=== PATIENT | female | born 1950 | race Caucasian/White ===

== ENCOUNTER → 2018-12-21 | Outpatient (CLI) | payer SELFPAY ==
[2018-11-28 13:46] VITALS: BMI 38.5
--- NOTE | 2018-12-21 09:53 | ECHOD_ITS ---
Reason For Study: Afib/Flutter Procedure This was a 2D Doppler, Color Flow transthoracic echocardiogram. The exam was of adequate technical quality. Exam performed in department. Left Ventricle Normal LV size. Left ventricular systolic function is normal. The estimated ejection fraction is 60 %. There is evidence of diastolic dysfunction. No regional wall motion abnormalities noted. Right Ventricle Normal RV size. ICD or pacer leads identified within the right ventricle. Normal systolic function. Atria The left atrium is mildly enlarged. The right atrium is mildly enlarged. ICD or pacer leads identified within the right atrium. No doppler evidence for ASD. Mitral Valve There is no mitral annular calcification. Normal mitral valve. Mild-Moderate (1-2+) eccentric mitral valve insufficiency. Tricuspid Valve Normal tricuspid valve. Mild to moderate (1-2+) eccentric tricuspid valve insufficiency. Right ventricular systolic pressure estimated to be 45 mmHg. Aortic Valve Trisinus/trileaflet aortic valve. Normal aortic valve. Pulmonic Valve The pulmonic valve is not well visualized. Trivial pulmonic valve insufficiency. Great Vessels The aortic root is not well visualized. Pericardium/Pleural No pericardial effusion. MMode/2D Measurements & Calculations LVIDd: 3.8 cm IVSd: 1.0 cm LA dimension: 3.3 cm LVIDs: 2.5 cm LVPWd: 1.3 cm FS: 34.6 % LAV(MOD-bp): 82.2 ml LA A4 area: 24.8 cm2 RA A4 area: 20.2 cm2 LAV(MOD-bp) Indexed: 34.7 ml/m2 LAV(MOD-sp2): 81.8 ml LAV(MOD-sp4): 80.8 ml Time Measurements MV dec time: 0.22 sec Doppler Measurements & Calculations MV E max rajeev: 169.9 cm/sec Lat Peak E' Rajeev: 12.9 cm/sec Med Peak E' Rajeev: 9.3 cm/sec E/E' lat: 13.2 E/E' med: 18.3 MV V2 max: 180.1 cm/sec MV P1/2t max rajeev: 179.1 cm/sec Ao V2 max: 145.6 cm/sec MV max P.0 mmHg MV P1/2t: 96.6 msec Ao max P.5 mmHg MV V2 mean: 97.0 cm/sec MV dec slope: 542.9 cm/sec2 MV mean P.6 mmHg MVA(P1/2t): 2.3 cm2 MV V2 VTI: 42.8 cm LV V1 max: 104.3 cm/sec PA V2 max: 94.4 cm/sec TR max rajeev: 320.5 cm/sec LV V1 max P.3 mmHg TR max P.5 mmHg Interpretation Summary Left ventricular systolic function is normal. The estimated ejection fraction is 60 %. The left atrium is mildly enlarged. The right atrium is mildly enlarged. Mild-Moderate (1-2+) eccentric mitral valve insufficiency. Mild to moderate (1-2+) eccentric tricuspid valve insufficiency. Trivial pulmonic valve insufficiency. Right ventricular systolic pressure estimated to be 45 mmHg. There is evidence of diastolic dysfunction. Ordering Physician: Yobani Butler Referring Physician: Yobani Butler Performed By: Leonel Garza RCS
== END | disposition home or self-care (01) ==
PROVIDERS: Family Provider Family Medicine; PCP Family Medicine; Referring Provider Internal Medicine Cardiovascular Disease; Visit Provider Internal Medicine Cardiovascular Disease
DX: Z01.810 Encounter for preprocedural cardiovascular examination (principal); I48.0 Paroxysmal atrial fibrillation; I48.92 Unspecified atrial flutter; Z95.0 Presence of cardiac pacemaker; E78.5 Hyperlipidemia, unspecified; I10 Essential (primary) hypertension
CPT/HCPCS: 93306

== ENCOUNTER 2020-03-27 10:12 | Day surgery (SDC) | payer SELFPAY, OTHER ==
[2019-11-27 15:55] VITALS: BMI 39.9
--- NOTE | 2020-03-23 02:27 | HP_ITS ---
HPI HPI History of Present Illness Surgical H&P: Yes Details: WYATT SAGASTUME, is a 69 year old white female who presents to the office today for an outpatient cardiovascular follow-up of her history of underlying atrial fibrillation status post EPS/RFA and subsequent AV node ablation with permanent pacemaker placement. This is superimposed on hyperlipidemia, hypertension, liver adenocarcinoma, and MESSI with CPAP therapy. Patient's permanent pacemaker evaluation prior to office visit showed ventricular paced at 99.8%, no VHR episodes, and 2 months of battery longevity. Pt denies chest, arm, jaw, or neck discomfort. His exercise tolerance is stable. Pt denies symptoms of CHF, palpitations, lightheadedness, dizziness, near syncopal or syncopal episodes. Pt denies claudication issues. Pt. denies orthopnea, PND, fever, chills, blood in urine, blood in stool, myalgia, or unexplainable fatigue. She states bilateral lower extremity edema that progresses throughout the day and improves over night. She denies any urinary symptoms such as dysuria or frequency. Intake Vital Signs 03/23/20 Height 5 ft 10 in 03/23/20 Weight: 271 lb 03/23/20 BMI 38.9 03/23/20 BP 143/80 H 03/23/20 Blood Pressure Location Lt brachial 03/23/20 Position Sitting 03/23/20 Respiration 18 03/23/20 Pulse 86 03/23/20 Pulse Source Monitor 03/23/20 Pulse Oximetry (%) 97 Intake Visit Reasons: GEN CHG, UPDATE H&P Esl Instructor Required: No Accompanied by: None Is patient in pain?: No Allergies Pproifa-Xqk-Bbx Reductase Inhibitor Adverse Reaction (Unknown, Verified 03/23/20 13:22) Unknown Medications warfarin 2 mg tablet 2 mg PO QDAY #90 tab 02/25/19 [Rx Confirmed 03/23/20] amlodipine 10 mg tablet 10 mg PO QDAY #90 tab 05/20/19 [Rx Confirmed 03/23/20] hydrochlorothiazide 12.5 mg tablet 12.5 mg PO QDAY #90 tab 05/20/19 [Rx Confirmed 03/23/20] metoprolol tartrate 25 mg tablet 25 mg PO BID #180 tab 05/20/19 [Rx Confirmed 03/23/20] potassium chloride 20 mEq tablet,extended release(part/cryst) 20 meq PO DAILY #90 tab 07/29/19 [Rx Confirmed 03/23/20] ferrous sulfate 325 mg (65 mg iron) tablet 325 mg PO DAILY 11/27/19 [History Confirmed 03/23/20] [facility] Medical History (Updated 03/23/20 @ 14:24 by Ravi Cárdenas ASSEMBLY WORKER, ASSEMBLY WORKER-C) Essential hypertension (Chronic) Malignant tumor of splenic flexure (Chronic) Hyperlipidemia (Chronic) Paroxysmal atrial flutter (Acute) Cardiac pacemaker in situ (Chronic) 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 of anticoagulants (Chronic) Paroxysmal atrial fibrillation (Chronic) Anxiety (Acute) Sleep apnea (Acute) Hypertension (Inactive) Surgical History (Updated 11/27/19 @ 15:57 by Hayley Barragan) History of cardiac radiofrequency ablation (Resolved) History of colon surgery (Resolved) History of right knee joint replacement (Resolved) Social History (Updated 03/23/20 @ 14:27 by Ravi Cárdenas ASSEMBLY WORKER, ASSEMBLY WORKER-C) Smoking Status: Never smoker alcohol intake: never substance use type: does not use ROS Const Const: Negative for fatigue, weakness, body ache, fever(s) or chills ENT ENT: Negative for dizziness Cardio Chest Pain: No Palpitations: No Edema: Bilateral Muscle aches with walking: None Resp Respiratory: Negative for SOB with activity, SOB at rest, SOB orthopnea\SOB lying down or paroxysmal nocturnal dyspnea GI GI: Negative nausea, vomiting blood/hematemesis, bright, red blood in stools or black,tarry stools : Negative for hematuria or frequent nighttime urination/ nocturia Musc Musc: Negative for muscle aches/ myalgia Skin Skin: Negative non-healing lesions or rash Neuro Neuro: Negative for dizziness, lightheadedness, near syncope, syncope, orthostatic symptoms or weakness Endo Endo: Negative for fatigue Allergy Allergy/Immunology: Negative for rash Cardiology Exam Const Appearance: cooperative, healthy appearing, comfortable and no acute distress Nutritional Appearance: well nourished and obese Orientation: alert, awake and oriented x3 Head Head: normal to inspection Ears: hearing grossly normal bilaterally Nose: external nose normal Face and Sinus: face symmetric Mouth: oral mucosae normal Eyes General: appearance normal, both eyes and all related structures Eyelids: eyelids normal EOM: EOM intact bilaterally Neck Neck: normal visual inspection and no JVD Carotids: normal carotid upstroke Chest Chest inspection: normal inspection of the chest, symmetric chest movement and normal respiratory effort; negative cough Auscultation: Bilateral: Clear to Auscultation Cardio Rate: regular rate Rhythm: regular rhythm Heart sounds: S1 normal and S2 normal; negative rub, gallop or murmur GI GI: normal to inspection and obese Neuro General: alert, awake, oriented x3 and CN's II-XI intact bilaterally Skin Skin: no rashes or lesions noted Extremities Pulses: Normal: Right Posterior Tibial Pulse, Left Posterior Tibial Pulse, Right Radial Pulse, Left Radial Pulse Lower Extremity Edema: None: Bilateral Psych Psychological: normal affect Assessment & Plan 1. Paroxysmal atrial fibrillation I48.0 Plan This appears stable. Her most recent permanent pacemaker evaluation did not reveal any VHR episodes. At this time, she will continue current medical therapy which includes metoprolol tartrate 25 mg p.o. twice daily for rate control and warfarin therapy for CVA protection. Her EKG at office appointment shows ventricular paced rhythm at a rate of 76 bpm, QTC of 510, and a QRS of 196. Her warfarin will temporarily be held on account of generator change. 2. Cardiac pacemaker in situ Z95.0 Plan Patient's pacemaker evaluation on 03/23/2020 showed prior longevity of 2 months. She will proceed with generator change with Dr. Holman on 03/27/2020. She will continue to follow with pacemaker clinic on a routine basis. Orders Orders: 12 Lead EKG performed by [facility] Today 3. Essential (primary) hypertension I10 Plan Her blood pressure is slight elevated today in office. At this time, this is thought to be attributed to suddenness of pacemaker schedule. She was asked to continue to monitor her blood pressure at home. We will continue to follow and address further at next office appointment 05/25/2020 unless issues arise. Options for higher blood pressure readings may include increasing hydrochlorothiazide. This may assist with lower extremity edema and hypertension. 4. Hyperlipidemia, unspecified hyperlipidemia type E78.5 Plan She is currently not on cholesterol-lowering medication. She has not had any recent lipid panel obtained. Plan Detail Additional Comments Thank you for allowing us to participate in the patients plan of care, if you have any questions please do not hesitate to call. This note was generated using a voice recognition system and there may be incorrect words, spelling or punctuation that were not noted when reviewing the office note prior to saving. Coding Level of Care Code Off vis,est,level 3 Diagnoses Paroxysmal atrial fibrillation I48.0 Cardiac pacemaker in situ Z95.0 Essential (primary) hypertension I10 Hyperlipidemia, unspecified hyperlipidemia type E78.5 ??Hyperlipidemia type: unspecified Coding Level of Care Code Off vis,est,level 3 Diagnoses Paroxysmal atrial fibrillation I48.0 Cardiac pacemaker in situ Z95.0 Essential (primary) hypertension I10 Hyperlipidemia, unspecified hyperlipidemia type E78.5 ??Hyperlipidemia type: unspecified Supplemental Info Supplemental Information Transthoracic echocardiogram: 12-21-18 Interpretation Summary Left ventricular systolic function is normal. The estimated ejection fraction is 60 %. The left atrium is mildly enlarged. The right atrium is mildly enlarged. Mild-Moderate (1-2+) eccentric mitral valve insufficiency. Mild to moderate (1-2+) eccentric tricuspid valve insufficiency. Trivial pulmonic valve insufficiency. Right ventricular systolic pressure estimated to be 45 mmHg. There is evidence of diastolic dysfunction. Diagnostics Electrocardiogram 03/23/20 Echocardiogram 12/21/18 Pacemaker Check 01/21/20 Chest X-Ray 03/23/20 03/23/20 [id number] <Electronically signed by Ravi STERN> Date _ Ravi STERN
[2020-03-23 13:22] VITALS: BMI 38.9
--- NOTE | 2020-03-23 14:08 | RAD_ITS ---
STUDY: X-RAY CHEST REASON FOR EXAM: Female, 69 years old. PATIENT IS HAVING A PPM GENERATOR CHANGE ON 03/27/20. HX OF A FIB. PACEMAKER FIRST PLACED IN 2011. TECHNIQUE: PA and lateral views of the chest. COMPARISON: Comparison is made with prior study dated 03/27/2012. FINDINGS: A right-sided portacatheter is seen with the tip at the junction of the superior vena cava and right atrium. There now is evidence of a 2.5 cm x 2.8 cm nodule in the right upper lobe. There is no demonstrated pleural abnormality. A left-sided unipolar pacemaker is seen. Normal mediastinum and verito. Normal visualized pulmonary arteries. There is atherosclerotic tortuosity of the aortic arch and descending thoracic aorta. There are diffuse degenerative changes of the visualized thoracic spine. Levoscoliosis. Normal visualized ribs, clavicles, and shoulders. There is no demonstrated abnormality of the visualized soft tissue structures of the upper abdomen. RAD/Chest PA and Lateral IMPRESSION: 2.5 cm x 2.8 cm nodule in the right upper lobe. Electronically Signed: Baltazar Mireles, at 15:52 EDT , Service support ,
[2020-03-23 14:26] LABS: Bacteria 0 SEEN /hpf (None Seen); Mucous, Urine 0 SEEN /hpf (<or=2+); Red Blood Cells-Urine 0 SEEN /hpf (0-5)
[2020-03-23 16:06] LABS: International Normalized Ratio 2.1; Prothrombin Time (Protime)PT. 22.9 SECONDS (11.7-14.9)
[2020-03-23 16:13] LABS: Color, Urine YELLOW (Yellow); Glucose, Dipstick Normal (Normal); Ketone-Dipstick Negative (Negative); Protein-Dipstick Negative (Negative); Specific Gravity, Urine 1.015 (1.002-1.030); Urine Bilirubin Dipstick Negative (Negative); Urine Clarity Sl Cloudy (Clear)
[2020-03-23 16:14] LABS: Leukocyte Esterase-Dipstick Negative /ul (Negative); Nitrite-Dipstick Negative (Negative); Occult Blood-Urine Negative /ul (Negative); Urine Urobilinogen Normal (Normal)
[2020-03-23 16:16] LABS: Squamous Epithelial Cells - UA 0-5 SEEN /hpf (5-10); White Blood Cells 0-5 SEEN /hpf (0-5)
[2020-03-23 16:49] LABS: BUN 20 mg/dL (7-18); EST Glomerular Filtration Rate 59 mL/min (>60); Glucose 97 mg/dL (74-106)
[2020-03-23 16:50] LABS: Anion Gap 6 (5-15); Calcium,Total 9.2 mg/dL (8.5-10.1); Chloride 108 mmol/L (98-107); Est Glom Filt Rate - Afr Amer 71 mL/min (>60); Potassium 3.8 mmol/L (3.5-5.1); Sodium Level 138 mmol/L (136-145)
[2020-03-23 17:09] LABS: Hematocrit 33.7 % (37-47); Hemoglobin 11.3 g/dL (12.0-15.0); Mean Corp Hgb Conc 33.5 g/dL (32-36); Mean Corpuscular Hgb 30.2 pg (27.0-32.0); Mean Corpuscular Volume 90.1 fL (81-99); Mean Platelet Vol. 9.6 fl (6.2-12.0); Platelet Count 342 K/mm3 (150-450); RBC Distribution Width CV 17.4 % (11.6-14.6); RBC Distribution Width SD 55.9 fl (35.1-43.9); Red Blood Count 3.74 M/mm3 (4.2-5.4); White Blood Count 8.7 K/mm3 (4.4-11.0)
[2020-03-25 10:19] VITALS: BMI 38.9
[2020-03-27 10:31] LABS: Prothrombin Time Fingerstick 19.1 SEC (11.9-14.4)
--- NOTE | 2020-03-27 13:17 | CL.IE_ITS ---
Patient: WYATT SAGASTUME Study Date: 03/27/2020 Performing: Justin Holman MD : 1950 Age: 69 Gender: female PROCEDURES PERFORMED [id number] REMOVAL+REPLACEMENT PACER-SINGLE LEAD INDICATIONS Atrial fibrillation and complete heart block PROCEDURE DETAILS The patient was brought to the Catheterization Lab in the postabsorptive nonsedated state. Infor med consent was obtained prior to the procedure. Local anesthetic was given subcutaneously to the le ft upper chest area with Lidocaine 2%. Incision was made to the left upper chest. PPM generator was r emoved. PPM generator was attached to the lead(s) and inserted into the pocket. PPM generator was the n interrogated by the robot programmer. Device pocket was irrigated with antibiotic. Subcutaneous closure w as completed with 3-0 Vicryl. Skin closure was completed with 4-0 Vicryl. The patient tolerated the procedure well. Estimated Blood Loss: 15 ml's IMPLANTED / EX-PLANTED DEVICES IMPLANTED DEVICE(S): PPM Generator - Head Of Maintenance: [employer], Model # [id number] [id number] SR MRI SureScan [id number] , Serial # [id number] DEVICE PARAMETERS VENTRICULAR LEAD PARAMETERS: threshold- 1.25 (V) impedence- 399 (OHMS) R wave- 0.9 (mV) DEVICE PARAMETERS: Lower rate- 70 Upper rate- 130 Mode- VVIR CONCLUSIONS / RECOMMENDATIONS Device Conclusions: Successful implantation of a single chamber pacemaker battery change and replacem ent Device Recommendations: Follow up with Primary Care Physician PROCEDURE MEDICATIONS Fentanyl 50 mcg IV Versed 1 mg IV Fentanyl 25 mcg IV Oxygen: 2 L/min via nasal cannula Antibiotic given in appropriate timeframe. Ancef 2 Gm IV @ 03/27/2020 12:23:40 Signed By Justin Holmna MD On 03/27/2020 13:17:02 Justin Holman MD
== END 2020-03-27 14:25 | disposition home or self-care (01) ==
PROVIDERS: Nurse Practitioner Family; PCP Family Medicine; Referring Provider Internal Medicine Cardiovascular Disease; Visit Provider Internal Medicine Cardiovascular Disease
DX: Z45.010 Encounter for checking and testing of cardiac pacemaker pulse generator [battery] (principal); I48.0 Paroxysmal atrial fibrillation; I44.2 Atrioventricular block, complete; I10 Essential (primary) hypertension; E78.5 Hyperlipidemia, unspecified; I48.92 Unspecified atrial flutter; F41.9 Anxiety disorder, unspecified; G47.33 Obstructive sleep apnea (adult) (pediatric); E66.9 Obesity, unspecified; Z68.38 Body mass index [BMI] 38.0-38.9, adult; Z79.01 Long term (current) use of anticoagulants; Z79.899 Other long term (current) drug therapy
CPT/HCPCS: 33227; 36415; 36416; 71046; 80048; 81001; 85027; 85610; 99152; 99153; J7040; J7050